=== PATIENT | female | born 1955 | race Caucasian/White ===

== ENCOUNTER 2018-10-22 10:27 | Emergency (ER) | payer BC, OTHER ==
--- NOTE | 2018-10-22 13:15 | UC ---
Minor Trauma HPI - HPI Summary HPI Summary: The patient is a 63-year-old female that slipped and fell on a wet floor today at work. 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 As she was walking by the water cooler she slipped and fell on her buttocks and also hitting her right elbow. She has had a history of neck surgery for spinal stenosis. Denies any neck pain or headache. She is able to bear weight. - History of Current Complaint Chief Complaint: UCTrauma Stated Complaint: HIP, ARM, AND NECK INJURY Time Seen by Provider: 10/22/18 12:54 Hx Obtained From: Patient Onset/Duration: Sudden Onset Onset Of Pain: Immediate Severity Initially: Moderate Severity Currently: Mild Pain Intensity: 4 Pain Scale Used: 0-10 Numeric Mechanism Of Injury: Fall From A Standing Position Aggravating Factor(s): Movement Alleviating Factor(s): Nothing Associated Signs And Symptoms: Negative: Loss Of Consciousness, Ecchymosis, Swelling Body - Head: 1 - pain 2 - pain but no swelling or limited ROM - Allergies/Home Medications Allergies/Adverse Reactions: Allergies Allergy/AdvReac Type Severity Reaction Status Date / Time Sulfa (Sulfonamide Allergy Itching Verified 10/22/18 10:56 Antibiotics) Home Medications: Home Medications Biotin 1 mg PO DAILY 10/22/18 [History Confirmed 10/22/18] Fexofenadine/Pseudoephedrine [Mariana-D 24 Hour Tablet] 1 tab PO DAILY 10/22/18 [History Confirmed 10/22/18] PMH/Surg Hx/FS Hx/Imm Hx Previously Healthy: Yes Endocrine History: Diabetes Cardiovascular History: Hypertension - Surgical History Surgical History: Yes Surgery Procedure, Year, and Place: C SECTION X 2 neck surgery - Family History Known Family History: Positive: Hypertension - Social History Alcohol Use: Occasionally Substance Use Type: None Smoking Status (MU): Never Smoked Tobacco Review of Systems All Other Systems Reviewed And Are Negative: Yes Constitutional: Positive: Negative Skin: Positive: Negative Eyes: Positive: Negative ENT: Positive: Negative Respiratory: Positive: Negative Cardiovascular: Positive: Negative Gastrointestinal: Positive: Negative Genitourinary: Positive: Negative Motor: Positive: Negative Neurovascular: Positive: Negative Musculoskeletal: Positive: Arthralgia - right elbow Neurological: Positive: Negative Psychological: Positive: Negative Physical Exam Triage Information Reviewed: Yes Appearance: Well-Appearing, No Pain Distress, Well-Nourished Vital Signs: Initial Vital Signs Temp 97 F 10/22/18 10:52 Pulse 79 10/22/18 10:52 Resp 18 10/22/18 10:52 BP 114/69 10/22/18 10:52 Pulse Ox 100 10/22/18 10:52 Vital Signs Reviewed: Yes Eyes: Positive: Conjunctiva Clear ENT: Positive: Hearing grossly normal. Negative: Nasal congestion, Nasal drainage, Tonsillar swelling, Tonsillar exudate, Trismus, Muffled voice, Hoarse voice Dental Exam: Normal Neck: Positive: Supple, Nontender, No Lymphadenopathy, Other: - ROM limited but has been so for years, no midline pratibha tenderness Respiratory: Positive: Lungs clear, Normal breath sounds, No respiratory distress Cardiovascular: Positive: RRR, No Murmur Abdominal Exam: Normal Bowel Sounds: Positive: Present Musculoskeletal: Positive: ROM Intact, No Edema Neurological: Positive: Alert Psychological Exam: Normal Skin Exam: Normal Diagnostics - Radiology No standard instances Radiology Interpretation Completed By: Radiologist Summary of Radiographic Findings: no fx Minor Trauma Course/Dx - Differential Dx/Diagnosis Provider Diagnosis: Fall, Contusion, buttock, Contusion of right elbow, Cervical strain Discharge ED - Sign-Out/Discharge Documenting (check all that apply): Patient Departure All imaging exams completed and their final reports reviewed: Yes - Discharge Plan Condition: Stable Disposition: HOME Patient Education Materials: Cervical Strain (ED), Contusion in Adults (ED) Referrals: Alvin Hong MD [Medical Doctor] - If Needed (recheck in 1-2 weeks if not better) Additional Instructions: ice tylenol see occupation doc if not better in one week - Billing Disposition and Condition Condition: STABLE Disposition: Home
[2018-10-22 13:46] VITALS: BP 118/80
== END 2018-10-22 13:44 | disposition home or self-care (01) ==
LOC: UCEAST 10:27
DX: S30.0XXA Contusion of lower back and pelvis, initial encounter (principal); S50.01XA Contusion of right elbow, initial encounter; S16.1XXA Strain of muscle, fascia and tendon at neck level, initial encounter; W01.0XXA Fall on same level from slipping, tripping and stumbling without subsequent striking against object, initial encounter; Y92.89 Other specified places as the place of occurrence of the external cause; E11.9 Type 2 diabetes mellitus without complications; I10 Essential (primary) hypertension; Z88.2 Allergy status to sulfonamides
CPT/HCPCS: 72170; 99211; G0463

== ENCOUNTER 2018-12-28 00:59 | Emergency (ER) | payer BC, OTHER ==
--- NOTE | 2018-12-28 01:18 | ED ---
HPI Chest Pain - HPI Summary HPI Summary: Patient complains of sudden onset right-sided chest pain, sternal chest pain and bilateral shoulder and neck pain after cleaning up from dinner at 10:30 PM. Also complains of headache. History of occasional headaches, states this feels the same. Patient took Advil 11:15 PM for pain with some improvement in symptoms. Pain described as squeezing. Denies shortness of breath, trauma, vision change, speech change, unilateral weakness, fever, cough, sore throat, SOB, N/V/D, abdominal pain, change in urine, change in BM. No prior cardiac history. Denies hormonal supplements, history of cancer, history of , recent surgery or trauma, recent history of long travel, recent history of hemoptysis or unilateral leg pain. Medical history is DM, HTN. Nonsmoker. Moderate use of EtOH, denies recreational stimulants, energy drinks or excessive caffeine. - History of Current Complaint Chief Complaint: EDChestPainROMI Time Seen by Provider: 12/28/18 01:16 Hx Obtained From: Patient Onset/Duration: Started Hours Ago Timing: Constant Initial Severity: Mild Current Severity: Mild Pain Intensity: 3 Pain Scale Used: 0-10 Numeric Chest Pain Location: Mid Sternal, Right Anterior Chest Pain Radiates To:: Back, Shoulder Character: Pressure/Squeezing Aggravating Factor(s): Movement Alleviating Factor(s): Rest Associated Signs and Symptoms: Positive: Chest Pain - Allergy/Home Medications Allergies/Adverse Reactions: Allergies Allergy/AdvReac Type Severity Reaction Status Date / Time Sulfa (Sulfonamide Allergy Itching Verified 12/28/18 01:10 Antibiotics) PMH/Surg Hx/FS Hx/Imm Hx Endocrine/Hematology History: Reports: Hx Diabetes - HAS INSULIN PUMP Cardiovascular History: Reports: Hx Hypertension - ON MEDS Denies: Hx Pacemaker/ICD History: Denies: Hx Dialysis Musculoskeletal History: Denies: Hx Osteoporosis Sensory History: Denies: Hx Hearing Aid Opthamlomology History: Denies: Hx Legally Blind EENT History: Denies: Hx Deafness Psychiatric History: Denies: Hx Panic Disorder - Cancer History Hx Chemotherapy: No Hx Radiation Therapy: No - Surgical History Surgery Procedure, Year, and Place: C SECTION X 2 neck surgery Infectious Disease History: No Infectious Disease History: Denies: Traveled Outside the [place] in Last 30 Days - Family History Known Family History: Positive: Hypertension - Social History Alcohol Use: Occasionally Substance Use Type: Reports: None Smoking Status (MU): Never Smoked Tobacco Review of Systems Constitutional: Negative Eyes: Negative ENT: Negative Positive: Chest Pain Respiratory: Negative Gastrointestinal: Negative Genitourinary: Negative Musculoskeletal: Other Skin: Negative Neurological: Negative Psychological: Normal All Other Systems Reviewed And Are Negative: Yes Physical Exam - Summary Physical Exam Summary: Chest pain reproducible pressure both at sternum and right side chest. Tenderness to palpation along bilateral trapezius muscles and bilateral sternocleidomastoid muscles. Full range of motion of jaw or neck. No bony point tenderness along spine. Patient reproduces pain pain with movement of bilateral upper extremities. Full range of motion of bilateral upper extremities. Triage Information Reviewed: Yes Vital Signs On Initial Exam: Initial Vitals Temp Pulse Resp BP Pulse Ox 97.2 F 96 16 148/69 99 12/28/18 01:01 12/28/18 01:01 12/28/18 01:01 12/28/18 01:01 12/28/18 01:01 Vital Signs Reviewed: Yes Appearance: Positive: Well-Appearing Skin: Positive: Warm Head/Face: Positive: Normal Head/Face Inspection Eyes: Positive: Normal Neck: Positive: Supple Respiratory/Lung Sounds: Positive: Clear to Auscultation Cardiovascular: Positive: Normal Abdomen Description: Positive: Nontender Musculoskeletal: Positive: Normal Neurological: Positive: Normal Psychiatric: Positive: Normal AVPU Assessment: Alert - Yelena Coma Scale Best Eye Response: 4 - Spontaneous Best Motor Response: 6 - Obeys Commands Best Verbal Response: 5 - Oriented Coma Scale Total: 15 Procedures - Sedation Patient Received Moderate/Deep Sedation with Procedure: No Diagnostics - Vital Signs Vital Signs Temp Pulse Resp BP Pulse Ox 12/28/18 01:01 97.2 F 96 16 148/69 99 - Laboratory Result Diagrams: 12/28/18 01:37 12/28/18 01:37 Lab Statement: Any lab studies that have been ordered have been reviewed, and results considered in the medical decision making process. Chest Pain Course/Dx - Course Course Of Treatment: Patient complains of sudden onset right-sided chest pain, sternal chest pain and bilateral shoulder and neck pain after cleaning up from dinner at 10:30 PM. Also complains of headache. History of occasional headaches, states this feels the same. Patient took Advil 11:15 PM for pain with some improvement in symptoms. Pain described as squeezing. Denies shortness of breath, trauma, vision change, speech change, unilateral weakness, fever, cough, sore throat, SOB, N/V/D, abdominal pain, change in urine, change in BM. No prior cardiac history. Denies hormonal supplements, history of cancer, history of , recent surgery or trauma, recent history of long travel, recent history of hemoptysis or unilateral leg pain. Medical history is DM, HTN. Nonsmoker. Moderate use of EtOH, denies recreational stimulants, energy drinks or excessive caffeine. Vital signs within normal limits. Labs unremarkable. Serial troponins negative. EKG sinus rhythm, heart rate 93, normal P axis. Chest pain reproducible. - Diagnoses Provider Diagnoses: Chest wall pain Discharge ED - Sign-Out/Discharge Documenting (check all that apply): Sign-Out Patient Signing out patient TO: Adi Watt - Discharge Plan Condition: Good Disposition: HOME Patient Education Materials: Chest Wall Pain (ED) Referrals: Mynor Campos MD [Primary Care Provider] - Additional Instructions: Fortunately we did not find any evidence of a heart problem causing your symptoms tonight, so it is safe to discharge you to home. If the pain changes, worsens, or you develop new symptoms we should see you back. I suspect it is related to a problem in your chest wall, those types of pains can linger for a few weeks. - Billing Disposition and Condition Condition: GOOD Disposition: Home
[2018-12-28 01:45] LABS: ABS Basophils 0.1 10^3/ul (0-0.2); ABS Eosinophils 0.2 10^3/ul (0-0.6); ABS Lymphocytes 2.6 10^3/ul (1.0-4.8); ABS Monocytes 0.7 10^3/ul (0-0.8); Eosinophil % 2.6 %; Hematocrit 36 % (35-47); Hemoglobin 12.4 g/dL (12.0-16.0); Lymphocyte % 26.9 %; Mean Corpuscular HGB Conc 34 g/dL (31-36); Mean Corpuscular Hemoglobin 31 pg (27-31); Mean Corpuscular Volume 91 fL (80-97); Mean Platelet Volume 7.8 fL (7.4-10.4); Platelet Count 209 10^3/uL (150-450); Red Blood Count 3.97 10^6 /uL (3.70-4.87); Red Cell Distribution Width 12 % (10-15); White Blood Count 9.6 10^3/uL (3.5-10.8)
[2018-12-28 02:03] LABS: Albumin 3.8 g/dL (3.2-5.2); Albumin/Globulin Ratio 1.5 (1-3); BUN/Creatinine Ratio 17.7 (8-20); C Reactive Protein 4.09 mg/L (<8.01); Calcium 9.3 mg/dL (8.6-10.3); EGFR African American 70.6 (>60); EGFR Non-African American 58.3 (>60); Globulin 2.6 g/dL (2-4); Magnesium 1.8 mg/dL (1.9-2.7); Potassium 3.9 mmol/L (3.5-5.0); Total Bilirubin 0.3 mg/dL (0.2-1.0); Total Protein 6.4 g/dL (6.4-8.9)
[2018-12-28 02:45] LABS: TSH (Thyroid Stimulating Horm) 3.13 mcIU/mL (0.34-5.60)
[2018-12-28 03:05] LABS: Urine Bacteria Absent (Absent); Urine Red Blood Cell Absent (Absent); Urine White Blood Cell Absent (Absent)
[2018-12-28 03:06] LABS: Urine Appearance Clear; Urine Bilirubin Negative (Negative); Urine Blood Negative (Negative); Urine Color Colorless; Urine Glucose Negative (Negative); Urine Ketones Negative (Negative); Urine Nitrite Negative (Negative); Urine Protein Negative (Negative); Urine Urobilinogen Negative (Negative)
[2018-12-28 05:15] VITALS: BP 93/52
== END 2018-12-28 05:05 | disposition home or self-care (01) ==
LOC: ED 00:59
DX: R07.89 Other chest pain (principal); E11.9 Type 2 diabetes mellitus without complications; I10 Essential (primary) hypertension; Z96.41 Presence of insulin pump (external) (internal); Z79.4 Long term (current) use of insulin; Z79.899 Other long term (current) drug therapy; Z88.2 Allergy status to sulfonamides
CPT/HCPCS: 36415; 80053; 81003; 83690; 83735; 84443; 84484; 85025; 86140; 93005; 99283